=== PATIENT | male | born 2000 | race Caucasian/White ===

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

== ENCOUNTER 2019-06-15 19:30 | Emergency (ER) | payer MEDICAID ==
[~2019-06-15] VITALS: Ht 180.3 cm; Wt 82.0 kg
[2019-06-15 19:36] VITALS: BP 137/87
--- NOTE | 2019-06-15 21:43 | NUR ---
PATIENT SIGNED OUT AMA.
--- NOTE | 2019-06-15 21:57 | NUR ---
PATIENT PROVIDED WITH A CAB RIDE HOME.
== END 2019-06-15 21:57 | disposition other institution (70) ==
LOC: ED 20:31
DX: R07.89 Other chest pain (principal)
CPT/HCPCS: 71046; 93005; 99283

== ENCOUNTER 2019-10-16 18:18 | Emergency (ER) | payer MEDICAID ==
[~2019-10-16] VITALS: Ht 182.9 cm; Wt 85.5 kg
[2019-10-16 20:51] VITALS: BP 145/65
[2019-10-16] MEDS ORDERED: CEPHALEXIN 500 MG CAPSULE ONE (21:05)
--- NOTE | 2019-10-16 21:16 | NUR ---
PT SITTING UP IN CHAIR, NAD, RESPIRATIONS EVEN AND UNLABORED, PT MEDICATED PER MAR
[2019-10-16] MEDS ORDERED: CEPHALEXIN 500 MG CAPSULE PO ONE (21:30)
== END 2019-10-16 22:11 | disposition home or self-care (01) ==
LOC: ED 21:07
DX: S60.461A Insect bite (nonvenomous) of left index finger, initial encounter (principal); L03.114 Cellulitis of left upper limb; W57.XXXA Bitten or stung by nonvenomous insect and other nonvenomous arthropods, initial encounter; Y93.89 Activity, other specified; Y92.410 Unspecified street and highway as the place of occurrence of the external cause; Y99.8 Other external cause status
CPT/HCPCS: 99283